=== PATIENT | female | born 1960 | race Hispanic/Latino ===

== ENCOUNTER 2017-04-06 14:17 | Emergency (ER) | payer MEDICARE ==
[2017-04-06] MEDS ORDERED: PROVENTIL IH PRN (14:45)
--- NOTE | 2017-04-06 14:49 | Emergency Department Report ---
ED Psych HPI - General Chief Complaint: Psych Stated Complaint: SUCIDAL Source: patient Mode of arrival: Ambulatory - History of Present Illness Initial Comments: She is a 56-year-old female past medical history of psychiatric disorder who presents with suicidal ideation and suicide attempt to try to slit her wrist. Patient states that she tried to slit her wrist today. She states that she lives in a [place] and that she is hearing voices. Patient denies any having any homicidal ideation. She states that stress makes her symptoms worse nothing makes it better. Patient denies doing any drugs. - Related Data Home Medications Medication Instructions Recorded Confirmed Last Taken ARIPiprazole [Abilify] 10 mg PO DAILY 04/06/17 04/06/17 04/05/17 22:00 1 TAB AtorvaSTATin [Lipitor] 10 mg PO QHS 04/06/17 04/06/17 04/05/17 22:00 1 TAB Carbidopa/Levodopa ER 50-200 1 tab PO QPM 04/06/17 04/06/17 Unknown [Sinemet ER 50/200] Carbidopa/Levodopa [Carbidopa-Levo 1 each PO QAM 04/06/17 04/06/17 Unknown 25-100 mg Odt] Citalopram [celeXA] 20 mg PO QDAY 04/06/17 04/06/17 04/05/17 22:00 1 TAB Levothyroxine [Synthroid] 50 mcg PO DAILY 04/06/17 04/06/17 04/06/17 15:00 1 TAB Loratadine [Claritin] 10 mg PO DAILY 04/06/17 04/06/17 04/05/17 22:00 1 TAB Omeprazole 40 mg PO DAILY 04/06/17 04/06/17 04/05/17 22:00 1 TAB Sertraline [Zoloft] 100 mg PO DAILY 04/06/17 04/06/17 04/06/17 15:06 1 TAB risperiDONE [RisperDAL] 1 mg PO DAILY 04/06/17 04/06/17 04/05/17 22:00 1 TAB traZODone [Desyrel] 150 mg PO QHS 04/06/17 04/06/17 04/05/17 22:00 1 TAB Allergies Allergy/AdvReac Type Severity Reaction Status Date / Time codeine Allergy Vomiting Verified 03/21/14 12:44 tramadol Allergy Vomiting Verified 03/21/14 12:44 ED Review of Systems ROS: Stated complaint: SUCIDAL Other details as noted in HPI Constitutional: denies: chills, fever Eyes: denies: eye pain, eye discharge, vision change ENT: denies: ear pain, throat pain Respiratory: denies: cough, shortness of breath, wheezing Cardiovascular: denies: chest pain, palpitations Endocrine: no symptoms reported Gastrointestinal: denies: abdominal pain, nausea, diarrhea Genitourinary: denies: urgency, dysuria, discharge Musculoskeletal: denies: back pain, joint swelling, arthralgia Skin: denies: rash, lesions Neurological: denies: headache, weakness, paresthesias Psychiatric: as per HPI, anxiety, depression, auditory hallucinations, suicidal thoughts Hematological/Lymphatic: denies: easy bleeding, easy bruising ED Past Medical Hx - Past Medical History Previous Medical History?: Yes Hx GERD: Yes Hx Headaches / Migraines: Yes Hx Psychiatric Treatment: Yes (schizophrenia, bipolar) Hx HIV: No Additional medical history: neurofibromatosis - Surgical History Past Surgical History?: Yes Additional Surgical History: cervial slipped discs. . hysterectomy. vaginal tumor removals - Social History Smoking Status: Current Every Day Smoker Substance Use Type: None - Medications Home Medications: Home Medications Medication Instructions Recorded Confirmed Last Taken Type ARIPiprazole [Abilify] 10 mg PO DAILY 04/06/17 04/06/17 04/05/17 22:00 History 1 TAB AtorvaSTATin [Lipitor] 10 mg PO QHS 04/06/17 04/06/17 04/05/17 22:00 History 1 TAB Carbidopa/Levodopa ER 50-200 1 tab PO QPM 04/06/17 04/06/17 Unknown History [Sinemet ER 50/200] Carbidopa/Levodopa [Carbidopa-Levo 1 each PO QAM 04/06/17 04/06/17 Unknown History 25-100 mg Odt] Citalopram [celeXA] 20 mg PO QDAY 04/06/17 04/06/17 04/05/17 22:00 History 1 TAB Levothyroxine [Synthroid] 50 mcg PO DAILY 04/06/17 04/06/17 04/06/17 15:00 History 1 TAB Loratadine [Claritin] 10 mg PO DAILY 04/06/17 04/06/17 04/05/17 22:00 History 1 TAB Omeprazole 40 mg PO DAILY 04/06/17 04/06/17 04/05/17 22:00 History 1 TAB Sertraline [Zoloft] 100 mg PO DAILY 04/06/17 04/06/17 04/06/17 15:06 History 1 TAB risperiDONE [RisperDAL] 1 mg PO DAILY 04/06/17 04/06/17 04/05/17 22:00 History 1 TAB traZODone [Desyrel] 150 mg PO QHS 04/06/17 04/06/17 04/05/17 22:00 History 1 TAB ED Physical Exam - General Limitations: No Limitations General appearance: alert, in no apparent distress - Head Head exam: Present: atraumatic, normocephalic - Eye Eye exam: Present: normal appearance - ENT ENT exam: Present: mucous membranes moist - Neck Neck exam: Present: normal inspection - Respiratory Respiratory exam: Present: normal lung sounds bilaterally. Absent: respiratory distress - Cardiovascular Cardiovascular Exam: Present: regular rate, normal rhythm. Absent: systolic murmur, diastolic murmur, rubs, gallop - GI/Abdominal GI/Abdominal exam: Present: soft, normal bowel sounds - Extremities Exam Extremities exam: Present: other (superficial left wirst laceration ) - Back Exam Back exam: Present: normal inspection - Neurological Exam Neurological exam: Present: alert - Psychiatric Psychiatric exam: Present: depressed, suicidal ideation - Skin Skin exam: Present: warm, dry, other (multiple skin nodules ). Absent: rash ED Course Vital Signs 04/06/17 04/06/17 04/06/17 14:37 15:48 16:00 Temperature 98.1 F Pulse Rate 92 H Pulse Rate [ 88 89 Bases] Respiratory 22 Rate Respiratory 20 18 Rate [Bases] Blood Pressure 118/78 [Left] O2 Sat by Pulse 99 Oximetry ED Medical Decision Making - Lab Data Result diagrams: 04/06/17 14:49 04/06/17 14:49 Lab Results 04/06/17 04/06/17 04/06/17 Range/Units 14:37 14:37 14:49 WBC (4.5-11.0) K/mm3 RBC (3.65-5.03) M/mm3 Hgb (10.1-14.3) gm/dl Hct (30.3-42.9) % MCV (79-97) fl MCH (28-32) pg MCHC (30-34) % RDW (13.2-15.2) % Plt Count (140-440) K/mm3 Lymph % (Auto) (13.4-35.0) % [place] % (Auto) (0.0-7.3) % Eos % (Auto) (0.0-4.3) % Baso % (Auto) (0.0-1.8) % Lymph # (1.2-5.4) K/mm3 [place] # (0.0-0.8) K/mm3 Eos # (0.0-0.4) K/mm3 Baso # (0.0-0.1) K/mm3 Seg Neutrophils % (40.0-70.0) % Seg Neutrophils # (1.8-7.7) K/mm3 Sodium 142 (137-145) mmol/L Potassium 4.4 (3.6-5.0) mmol/L Chloride 101.1 (98-107) mmol/L Carbon Dioxide 27 (22-30) mmol/L Anion Gap 18 mmol/L BUN 10 (7-17) mg/dL Creatinine 0.5 L (0.7-1.2) mg/dL Estimated GFR > 60 ml/min BUN/Creatinine Ratio 20 % Glucose 113 H (65-100) mg/dL Calcium 9.5 (8.4-10.2) mg/dL Urine Color Yellow (Yellow) Urine Turbidity Clear (Clear) Urine pH 5.0 (5.0-7.0) Ur Specific [place] 1.023 (1.003-1.030) Urine Protein <15 mg/dl (Negative) mg/dL Urine Glucose (UA) Neg (Negative) mg/dL Urine Ketones Tr (Negative) mg/dL Urine Blood Neg (Negative) Urine Nitrite Neg (Negative) Urine Bilirubin Neg (Negative) Urine Urobilinogen 4.0 (<2.0) mg/dL Ur Leukocyte Esterase Lg (Negative) Urine WBC (Auto) 4.0 (0.0-6.0) /HPF Urine RBC (Auto) 6.0 (0.0-6.0) /HPF U Epithel Cells (Auto) 5.0 (0-13.0) /HPF Urine Mucus 3+ /HPF Urine Opiates Screen Presumptive negative Urine Methadone Screen Presumptive negative Ur Barbiturates Screen Presumptive negative Ur Phencyclidine Scrn Presumptive negative Ur Amphetamines Screen Presumptive negative U Benzodiazepines Scrn Presumptive negative Urine Cocaine Screen Presumptive negative U Marijuana (THC) Screen Presumptive negative Drugs of Abuse Note Disclamer Plasma/Serum Alcohol (0-0.07) gm% 04/06/17 04/06/17 Range/Units 14:49 14:49 WBC 8.2 (4.5-11.0) K/mm3 RBC 4.96 (3.65-5.03) M/mm3 Hgb 14.3 (10.1-14.3) gm/dl Hct 42.4 (30.3-42.9) % MCV 86 (79-97) fl MCH 29 (28-32) pg MCHC 34 (30-34) % RDW 14.8 (13.2-15.2) % Plt Count 324 (140-440) K/mm3 Lymph % (Auto) 14.7 (13.4-35.0) % [place] % (Auto) 7.4 H (0.0-7.3) % Eos % (Auto) 1.2 (0.0-4.3) % Baso % (Auto) 0.8 (0.0-1.8) % Lymph # 1.2 (1.2-5.4) K/mm3 [place] # 0.6 (0.0-0.8) K/mm3 Eos # 0.1 (0.0-0.4) K/mm3 Baso # 0.1 (0.0-0.1) K/mm3 Seg Neutrophils % 75.9 H (40.0-70.0) % Seg Neutrophils # 6.2 (1.8-7.7) K/mm3 Sodium (137-145) mmol/L Potassium (3.6-5.0) mmol/L Chloride (98-107) mmol/L Carbon Dioxide (22-30) mmol/L Anion Gap mmol/L BUN (7-17) mg/dL Creatinine (0.7-1.2) mg/dL Estimated GFR ml/min BUN/Creatinine Ratio % Glucose (65-100) mg/dL Calcium (8.4-10.2) mg/dL Urine Color (Yellow) Urine Turbidity (Clear) Urine pH (5.0-7.0) Ur Specific [place] (1.003-1.030) Urine Protein (Negative) mg/dL Urine Glucose (UA) (Negative) mg/dL Urine Ketones (Negative) mg/dL Urine Blood (Negative) Urine Nitrite (Negative) Urine Bilirubin (Negative) Urine Urobilinogen (<2.0) mg/dL Ur Leukocyte Esterase (Negative) Urine WBC (Auto) (0.0-6.0) /HPF Urine RBC (Auto) (0.0-6.0) /HPF U Epithel Cells (Auto) (0-13.0) /HPF Urine Mucus /HPF Urine Opiates Screen Urine Methadone Screen Ur Barbiturates Screen Ur Phencyclidine Scrn Ur Amphetamines Screen U Benzodiazepines Scrn Urine Cocaine Screen U Marijuana (THC) Screen Drugs of Abuse Note Plasma/Serum Alcohol < 0.01 (0-0.07) gm% - Medical Decision Making Chief medical diagnosis: Psychosis Differential diagnosis: Substance dyspnea disorder, bipolar disorder, suicidal ideation CBC, CMP, urine drug screen, urinalysis, mental health evaluation and I will signed 1013 on patient Patient will need a 1013 due to patient being suicidal and having a suicide attempt with plan. Discussed with mental health worker they agree. Critical care attestation.: If time is entered above; I have spent that time in minutes in the direct care of this critically ill patient, excluding procedure time. ED Disposition Clinical Impression: Suicidal ideation Psychosis Qualifiers: Psychosis type: unspecified psychosis type Qualified Code(s): F29 - Unspecified psychosis not due to a substance or known physiological condition Disposition: DC/TX-65 PSY HOSP/PSY UNIT Is pt being admited?: No Does the pt Need Aspirin: No Condition: Stable Referrals: PRIMARY CARE, [Primary Care Provider] - 3-5 Days
[2017-04-06 15:20] LABS: Basophils % (Auto) 0.8 % (0.0-1.8); Eosinophils % (Auto) 1.2 % (0.0-4.3); Hematocrit 42.4 % (30.3-42.9); Hemoglobin 14.3 gm/dl (10.1-14.3); Mean Corpuscular HGB Conc 34 % (30-34); Mean Corpuscular Hemoglobin 29 pg (28-32); Mean Corpuscular Volume 86 fl (79-97); Platelet Count 324 K/mm3 (140-440); Red Blood Count 4.96 M/mm3 (3.65-5.03); Red Cell Distribution Width 14.8 % (13.2-15.2); White Blood Count 8.2 K/mm3 (4.5-11.0)
[2017-04-06 15:32] LABS: Anion Gap 18 mmol/L; BUN/Creatinine Ratio 20; Blood Urea Nitrogen 10 mg/dL (7-17); Calcium 9.5 mg/dL (8.4-10.2); Carbon Dioxide 27 mmol/L (22-30); Chloride 101.1 mmol/L (98-107); Glucose 113 mg/dL (65-100); Potassium 4.4 mmol/L (3.6-5.0); Sodium 142 mmol/L (137-145)
[2017-04-06] MEDS ORDERED: DELTASONE PO ONE (15:42)
[2017-04-06] MEDS: DUONEB *Not for PRN Use IH SCH ×2 (15:46→22:08)
--- NOTE | 2017-04-06 16:08 | Consultation ---
History of Present Illness - Reason for Consult Reason for consult: SA via cutting her wrist - History of Present Psychiatric Illness This is a 56 year old female with hearing loss and a reported history of depression who present 2/2 increased AH in the context of multiple ongoing disputes with her halfway peers which prompted her to attempt suicide via cutting her wrists. The dispute between her and one of her peers was recently exacerbated and she began hearing voices which she couldn't ignore. She further notes that she takes psychotropic medications, but could not list them. She currently maintains SI and command AH. Medications and Allergies Allergies Allergy/AdvReac Type Severity Reaction Status Date / Time codeine Allergy Vomiting Verified 03/21/14 12:44 tramadol Allergy Vomiting Verified 03/21/14 12:44 Home Medications Medication Instructions Recorded Confirmed Last Taken Type ARIPiprazole [Abilify] 10 mg PO DAILY 04/06/17 04/06/17 04/05/17 22:00 History 1 TAB AtorvaSTATin [Lipitor] 10 mg PO QHS 04/06/17 04/06/17 04/05/17 22:00 History 1 TAB Carbidopa/Levodopa ER 50-200 1 tab PO QPM 04/06/17 04/06/17 Unknown History [Sinemet ER 50/200] Carbidopa/Levodopa [Carbidopa-Levo 1 each PO QAM 04/06/17 04/06/17 Unknown History 25-100 mg Odt] Citalopram [celeXA] 20 mg PO QDAY 04/06/17 04/06/17 04/05/17 22:00 History 1 TAB Levothyroxine [Synthroid] 50 mcg PO DAILY 04/06/17 04/06/17 04/06/17 15:00 History 1 TAB Loratadine [Claritin] 10 mg PO DAILY 04/06/17 04/06/17 04/05/17 22:00 History 1 TAB Omeprazole 40 mg PO DAILY 04/06/17 04/06/17 04/05/17 22:00 History 1 TAB Sertraline [Zoloft] 100 mg PO DAILY 04/06/17 04/06/17 04/06/17 15:06 History 1 TAB risperiDONE [RisperDAL] 1 mg PO DAILY 04/06/17 04/06/17 04/05/17 22:00 History 1 TAB traZODone [Desyrel] 150 mg PO QHS 04/06/17 04/06/17 04/05/17 22:00 History 1 TAB Active Meds: Active Medications Albuterol (Proventil) 2.5 mg IH PRN PRN PRN Reason: wheezing Albuterol/Ipratropium (Duoneb *Not For Prn Use*) 1 ampul IH QIDRT [facility] Last Admin: 04/06/17 15:46 Dose: 1 ampul Mental Status Exam - Vital signs Last Vital Signs Temp 98.1 F 04/06/17 14:37 Pulse 89 04/06/17 16:00 Resp 18 04/06/17 16:00 BP 118/78 04/06/17 14:37 Pulse Ox 99 04/06/17 14:37 - Exam Orientation: time, place Affect: depressed, anxious Mood: hopeless, anxious Thought Process: Intact Perceptions: command, hallucinations Speech: normal rate and pattern Concentration: focused Motor activity: lethargic Level of consciousness: alert Memory: Intact Sleep Symptoms: None Interaction: cooperative Results Result Diagrams: 04/06/17 14:49 04/06/17 14:49 Abnormal lab results 04/06/17 04/06/17 Range/Units 14:49 14:49 [place] % (Auto) 7.4 H (0.0-7.3) % Seg Neutrophils % 75.9 H (40.0-70.0) % Creatinine 0.5 L (0.7-1.2) mg/dL Glucose 113 H (65-100) mg/dL All other labs normal. Assessment and Plan Assessment and plan: MDD with psychotic features r/o Psychosis related to hearing impairment r/o Bipolar Disorder Plan: Restart home medications victorino pichardo celexa Refer for inpatient hospitalization
[2017-04-06 16:36] LABS: Urine Drugs of Abuse Note Disclamer
[2017-04-06 16:55] LABS: Bilirubin,Urine NEG (Negative); Blood,Urine NEG (Negative); Ketones,Urine TR mg/dL (Negative); Leukocyte Esterase,Urine LG (Negative); Mucus,Urine 3+ /HPF; Nitrite,Urine NEG (Negative); Protein,Urine <15 mg/dL mg/dL (Negative)
[2017-04-07] MEDS: DUONEB *Not for PRN Use IH SCH ×4 (07:51→19:54)
--- NOTE | 2017-04-07 11:08 | Progress Note ---
Subjective - Reason for Consult Consult date: 04/07/17 Reason for consult: Psychiatry Follow-up - Chief Complaint Chief complaint: "I still hear the voices" 56-year-old female past medical history of psychiatric disorder who presents to the hospital for suicidal attempt by cutting her wrist. Today patient is calm and cooperative during the assessment. She stated that the voices is loud in her ear telling her to kill herself by using a knife. She stated that she is still suicidal and overwhelmed with the voices. She stated prior suicidal attempt in the past by cutting her wrists. She denies HI's and VH's. Per the staff, no behavioral disturbances overnight. Mental Status Exam - Vital signs Last Vital Signs Temp 98.0 F 04/07/17 03:20 Pulse 85 04/07/17 08:00 Resp 18 04/07/17 08:00 BP 124/80 04/07/17 03:20 Pulse Ox 98 04/07/17 03:20 - Exam Narrative exam: MSE: Appearance: calm, cooperative Behavior: regular eye contact Speech: regular rate and tone Mood: "depressed" Affect: flat Thought Process: circumstantial Thought Content: denies HI's and VH's Motor Activity: lying in bed Cognition: A/O x3 Insight: limited Judgment: poor Assessment and Plan Impression: Historical Dx: Depression. MDD with psychotic features. Today patient is calm and cooperative during the assessment. Patient has a hx of self- injury. Patient is suicidal. DDx R/O Psychosis related to hearing impairment, R/O Bipolar Disorder Recommendation/Plan: Continue 1013 with placement to [facility] today. Start Abilify 10 mg PO Daily for psychosis and Celexa 20 mg PO daily for depression. Discussed possible suicidality/medication induced juana with patient reference Celexa. Also discussed possible metabolic side effects of Abilify with patient.
[2017-04-07] MEDS ORDERED: ABILIFY PO SCH ×2 (12:00)
[2017-04-07] MEDS ORDERED: celeXA PO SCH (12:00)
[2017-04-07 14:52] VITALS: BP 103/61
[2017-04-07] MEDS ORDERED: TYLENOL PO ONE (19:03)
[2017-04-07] MEDS ORDERED: TYLENOL ONE (19:04)
== END 2017-04-07 21:00 ==
LOC: EEVIPCON 14:17 → ED 14:17
DX: R45.851 Suicidal ideations (principal); F29 Unspecified psychosis not due to a substance or known physiological condition; K21.9 Gastro-esophageal reflux disease without esophagitis; G43.909 Migraine, unspecified, not intractable, without status migrainosus; F31.9 Bipolar disorder, unspecified; F20.9 Schizophrenia, unspecified; F17.200 Nicotine dependence, unspecified, uncomplicated
CPT/HCPCS: 36415; 80048; 80307; 81001; 85025; 94640; 99285; G0480; J7512; 80320